=== PATIENT | male | born 1945 | race Caucasian/White ===

== ENCOUNTER → 2017-09-04 | Outpatient (CLI) | payer MEDICARE ==
--- NOTE | 2017-09-04 11:30 | FL ---
EXAMINATION TYPE: FL barium swallow w video DATE OF EXAM: 09/04/2017 MODIFIED SWALLOW / DEGLUTITION STUDY CLINICAL HISTORY: Dysphagia. TECHNIQUE: Deglutition study is performed utilizing thin liquid barium, honey and nectar thick liqui d barium, barium thick applesauce, and barium coated cracker. A total of 1 minute 56 seconds of fluor oscopic time was utilized during procedure. 1 image is saved to PACS. Approximately 10 cine sequence s were obtained but not sent to PACS. COMPARISON: None. FINDINGS: The oral and pharyngeal phases show satisfactory initiation and propagation with all modali ties tested. Normal mastication is seen with solid modalities tested. There is no evidence of penet ration or aspiration with any modality tested. There is a rounded vallecular mass at C2-C3 disc space level narrowing the hypopharyngeal airway. Some mild pharyngeal residuals are noted. Images saved to PACS system. Incidental note is made of straightening spine with moderate to severe spurring and dis c space narrowing C5-C6 level. IMPRESSION: No penetration or aspiration is observed. Abnormal study though with large round vallecul ar mass. ENT referral advised. Consider further investigation with contrast-enhanced neck CT also. Pl ease refer to speech therapist notes for further details if necessary.
== END | disposition home or self-care (01) ==
LOC: RADFLWHC 10:09
PROVIDERS: ATTEND Family Medicine
DX: R94.8 Abnormal results of function studies of other organs and systems (principal); R13.14 Dysphagia, pharyngoesophageal phase
CPT/HCPCS: 74230

== ENCOUNTER 2017-09-21 08:32 | Day surgery (SDC) | payer MEDICARE ==
[2017-09-19 16:52] VITALS: BMI 24.3
[~2017-09-21 08:32] MED LIST: CLINDAMYCIN 600 MG in DEXTROSE 5% IN WATER 50 ML IVPB ONE; DEXAMETHASONE SOD PHOSPHATE 10 MG/ML 1 ML VIAL IV ONE; DEXAMETHASONE SOD PHOSPHATE 4 MG/ML 1 ML VIAL IV ONE; FAMOTIDINE 20 MG/2 ML VIAL IV ONE; HYDROmorphone 1 MG/ML 1 ML SYRINGE IVP PRN; LIDOCAINE 1% 20 ML VIAL (10MG/ML) FOR IV START INTRADERMA PRN; MIDAZOLAM 2 MG/2 ML VIAL IV PRN; ONDANSETRON 4 MG/2 ML VIAL IVP ONE; SCOPOLAMINE 1.5MG/72HR PATCH TRANSDERM ONE
[2017-09-21] MEDS: LACTATED RINGERS 1,000 ML IV SCH ×2 (10:05→12:59)
[2017-09-21 10:20] LABS: INR 1.3 (<1.2); Prothrombin Time 13.2 sec (9.0-12.0)
[2017-09-21] MEDS ORDERED: PROPOFOL 10 MG/ML 20 ML VIAL IV ONE (11:30)
[2017-09-21] MEDS ORDERED: ePHEDrine SULFATE/0.9% NACL/PF 50 MG/5 ML SYRINGE IV ONE (11:30)
[2017-09-21] MEDS ORDERED: ROCURONIUM BROMIDE 10 MG/ML 10 ML VIAL IV ONE (11:30)
[2017-09-21] MEDS ORDERED: PHENYLEPHRINE-0.9% NACL SYG 1 MG/10 ML SYRINGE ONE (11:30)
[2017-09-21] MEDS ORDERED: MIDAZOLAM 2 MG/2 ML VIAL ONE (11:30)
[2017-09-21] MEDS ORDERED: SUCCINYLCHOLINE CHLORIDE 100 MG/5 ML SYR IV ONE (11:30)
[2017-09-21] MEDS ORDERED: GLYCOPYRROLATE 0.2 MG/ML 2 ML VIAL ONE (11:30)
[2017-09-21] MEDS ORDERED: DEXAMETHASONE SOD PHOS (MDV) 100 MG/10 ML VIAL ONE (11:30)
[2017-09-21] MEDS ORDERED: NEOSTIGMINE 1 MG/ML 10 ML VIAL ONE (11:30)
[2017-09-21] MEDS ORDERED: fentaNYL (PF) 50 MCG/ML 2 ML AMP ONE (11:30)
[2017-09-21 12:32] VITALS: TEMP 97
--- NOTE | 2017-09-21 12:39 | P.OP ---
Date of Procedure: 09/21/17 Preoperative Diagnosis: Vallecular cystic mass dysphagia Cough Postoperative Diagnosis: Same Procedure(s) Performed: Triple endoscopy and removal of a large i.e. massive vallecular cystic mass Anesthesia: VAA Surgeon: Ollie Mazno Estimated Blood Loss (ml): 5 Pathology: other (Vallecular cystic mass) Condition: stable Disposition: PACU Indications for Procedure: This patient presented to the office with difficulty swallowing breathing etc. Examination reveals extremely large vallecular cystic mass and I was unable to evaluate the vocal cords piriform sinus or other parts of the hypopharynx because of this extremely large mass. After long discussion, we decided to proceed forward with removal of this mass along with panendoscopy as this patient has had coughing issues and dysphagia. All risks, benefits, and alternative therapies were discussed in detail. Consent was obtained and all questions were answered. Operative Findings: Patient was found to have a massive vallecular cyst which was removed. There is clear evidence of chronic bronchitis with mucus noted with bronchoscopy. Hiatal hernia and reflux was noted with esophagoscopy. No other tumors or masses or other pathology was noted. Description of Procedure: This patient was taken to the operative room and placed in the supine position. A general inhalation anesthetic was administered to the patient by mask and subsequently intubated with a cuffed endotracheal tube by the department of anesthesia with a functioning IV line in place. The patient was monitored throughout the entire case by the department of anesthesia. A Jako laryngoscope was placed into the patient's mouth with care to avoid any trauma to the lips teeth gums and tongue. Ulcers open tongue was depressed and the entire [place] and hypopharynx was evaluated including the piriform sinus epiglottic folds [place] cords base of tongue etc. We found this extremely large vallecular mass which measured approximate 4 cm. This vallecular mass was removed and sent for pathology. A large amount of mucus was noted in the core of this vallecular mass. After the entire [place] and hypopharynx was evaluated this was placed on suspension on a Lewy and magnified with a microscope. We then inserted a bronchoscope into the mainstem bronchus and we did a complete bronchoscopy evaluating all 12 segments of the lungs. We evaluated the lungs to the extent of visualization with the bronchoscope. There was evidence of a large amount of mucus and clear evidence of chronic bronchitis but no signs of any endobronchial lesions. The bronchoscope was removed along with a laryngoscope and tooth guards and an esophagoscope was inserted into the esophagus we entered the right piriform sinus and cannulated the esophagus down to the lower esophageal sphincter. We evaluated the esophagus from the upper to the lower esophageal sphincter in total. There was a large amount of reflux disease noted but no signs of any esophageal lesions. All instrumentation was removed. The patient tolerated this well. Patient was taken to postanesthesia recovery in excellent condition
[2017-09-21 13:31] VITALS: RESP 18
[2017-09-21 14:22] VITALS: BP 115/80; PULSE 81
== END 2017-09-21 14:41 | disposition home or self-care (01) ==
LOC: OR 08:32
PROVIDERS: ATTEND Otolaryngology
DX: R13.13 Dysphagia, pharyngeal phase (principal); J39.2 Other diseases of pharynx; I10 Essential (primary) hypertension; I48.91 Unspecified atrial fibrillation; J44.9 Chronic obstructive pulmonary disease, unspecified; K21.9 Gastro-esophageal reflux disease without esophagitis; Z88.1 Allergy status to other antibiotic agents; Z88.0 Allergy status to penicillin; Z88.8 Allergy status to other drugs, medicaments and biological substances; Z79.82 Long term (current) use of aspirin; Z79.899 Other long term (current) drug therapy; Z79.01 Long term (current) use of anticoagulants; Z79.51 Long term (current) use of inhaled steroids
CPT/HCPCS: 43200; 31622; 31535; 88305; 85610; J2250; J1100 ×2; J2710; J2405; J3010; J2370; J0330; J2704

== ENCOUNTER 2022-07-10 12:57 | Inpatient (IN) | payer OTHER, MEDICARE ==
[2022-07-10] MEDS ORDERED: methylPREDNISolone SOD SUCCI 125 MG/2 ML VIAL IV STA (13:08)
--- NOTE | 2022-07-10 13:34 | ED ---
General Adult HPI - General Chief complaint: Shortness of Breath Stated complaint: ALPHONSO Time Seen by Provider: 07/10/22 13:01 Source: patient, EMS Mode of arrival: EMS Limitations: no limitations - History of Present Illness Initial comments: Patient presents to the ED by ambulance for evaluation. Patient states that he has been dyspneic since last night. Patient states that he has a history of COPD, and he states he was just in the hospital a week ago for similar symptoms. Patient states that he has been using his nebulizer machine at home with te mporary relief. Patient was given a DuoNeb treatment by EMS, and he states that his dyspnea has significantly improved currently. Patient states that he has not received any Covid vaccines shots. Patient states that he did have minor chest pain this morning, but he denies having any chest pain or pressure currently. Patient denies trauma or injury, fever or chills, headache, focal neuro deficit, neck/arm/jaw/back pain, pleuritic pain, cough or cold symptoms, palpitations, dizziness, nausea/vomiting/diaphoresis, abdominal pain, dysuria or urinary symptoms, decreased urine output, leg or calf swelling or pain, or any other symptoms or complaints. Patient is on warfarin anticoagulation therapy. - Related Data Home Medications Medication Instructions Recorded Confirmed Acetaminophen [Tylenol] 325 mg PO Q6H PRN 09/19/17 07/10/22 Albuterol Inhaler [Ventolin Hfa 2 puff INHALATION RT-Q4H PRN 09/19/17 07/10/22 Inhaler] Aspirin [Adult Low Dose Aspirin EC] 81 mg PO DAILY 09/19/17 07/10/22 Budesonide-Formot 160-4.5 Mcg 2 puff INHALATION RT-BID 09/19/17 07/10/22 [Symbicort 160-4.5 Mcg Inhaler] Furosemide [Lasix] 20 mg PO BID 09/19/17 07/10/22 Loratadine 10 mg PO DAILY 09/19/17 07/10/22 Omeprazole Magnesium [PriLOSEC OTC] 20 mg PO DAILY 09/19/17 07/10/22 Potassium Chloride [K-Tab ER] 10 meq PO DAILY 09/19/17 07/10/22 Tamsulosin HCl [Flomax] 0.4 mg PO DAILY 09/19/17 07/10/22 Acetaminophen/Diphenhydramine 2 tab PO HS PRN 07/01/22 07/10/22 [Tylenol PM 500-25mg] Atorvastatin Calcium [Lipitor] 40 mg PO DAILY 07/01/22 07/10/22 Nitroglycerin Sl Tabs [Nitrostat] 0.4 mg SL Q5M PRN 07/01/22 07/10/22 Sacubitril/Valsartan [Entresto 24 1 tab PO BID 07/01/22 07/10/22 mg-26 mg Tablet] Tiotropium 2.5 Mcg/Puff [Spiriva 2 puff INHALATION RT-DAILY 07/01/22 07/10/22 Respimat 2.5 Mcg] Warfarin Sodium 2 mg PO SUMOTUTHFRSA@2100 07/01/22 07/10/22 Previous Rx's Medication Instructions Recorded Metoprolol Tartrate [Lopressor] 25 mg PO BID 30 Days #60 tab 07/03/22 Allergies Allergy/AdvReac Type Severity Reaction Status Date / Time Penicillins Allergy Rash/Hives Verified 07/10/22 15:10 tiotropium Allergy Cough with Verified 07/10/22 15:10 [From Spiriva with handihaler HandiHaler] only vancomycin Allergy Rash/Hives Verified 07/10/22 15:10 morphine AdvReac Confusion Verified 07/10/22 15:10 Review of Systems ROS Statement: Those systems with pertinent positive or pertinent negative responses have been documented in the HPI. ROS Other: All systems not noted in ROS Statement are negative. Past Medical History Past Medical History: Coronary Artery Disease (CAD), GERD/Reflux, Hyperlipidemia, Hypertension Additional Past Medical History / Comment(s): Colitis Last Myocardial Infarction Date:: 1998 History of Any Multi-Drug Resistant Organisms: None Reported Past Surgical History: Coronary Bypass/CABG, Heart Catheterization With Stent Additional Past Surgical History / Comment(s): fem pop bypass Past Anesthesia/Blood Transfusion Reactions: No Reported Reaction Date of Last Stent Placement:: 2016 Past Psychological History: No Psychological Hx Reported Smoking Status: Never smoker Past Alcohol Use History: None Reported Past Drug Use History: None Reported General Exam Limitations: no limitations General appearance: alert, in no apparent distress Head exam: Present: atraumatic, normocephalic Eye exam: Present: normal appearance, EOMI ENT exam: Present: mucous membranes moist Neck exam: Present: other (Trachea is in midline) Respiratory exam: Present: normal lung sounds bilaterally, decreased breath sounds, other (Trace, scattered, bilateral expiratory wheezes; patient is speaking in full sentences without any apparent respiratory distress). Absent: respiratory distress, rales, rhonchi, stridor, chest wall tenderness Cardiovascular Exam: Present: regular rate, irregular rhythm, normal heart sounds, other (Normal radial pulses bilaterally) GI/Abdominal exam: Present: soft. Absent: distended, tenderness, guarding Extremities exam: Present: other (Negative Homans sign bilaterally). Absent: tenderness, pedal edema, calf tenderness Neurological exam: Present: alert, oriented X3. Absent: motor sensory deficit Psychiatric exam: Present: normal affect, normal mood Skin exam: Present: warm, dry, intact, normal color Course Vital Signs 07/10/22 07/10/22 07/10/22 13:02 13:22 14:44 Temperature 98.8 F 97.7 F 98.1 F Pulse Rate 86 90 80 Respiratory 18 16 16 Rate Blood Pressure 98/62 82/55 78/51 O2 Sat by Pulse 98 95 95 Oximetry 07/10/22 07/10/22 07/10/22 14:57 15:06 15:47 Temperature 98.1 F Pulse Rate 88 81 94 Respiratory 16 Rate Blood Pressure 90/63 O2 Sat by Pulse 95 Oximetry - Reevaluation(s) Reevaluation #1: 07/10/22 14:47 Case, H&P, test results and ED/EMS management were discussed with Dr. Davis who is currently in the ED. He accepts hospital admission. He recommends pulmonology (Dr. Bennett) consultation. He has no further recommendations at this time. 07/10/22 14:56 Patient states that his dyspnea has currently improved. Patient remains alert and breathing comfortably with a normal room air oxygen saturation. Patient is aware of his test results, and he agrees with hospital admission at this time. EKG Findings - EKG Comments: EKG Findings:: Atrial fibrillation with aberrant conduction versus PVCs, ventricular rate of 90 bpm, normal QRS duration, normal QT interval, no definite ST or T-wave abnormality, normal axis Medical Decision Making - Medical Decision Making I suspect that the patient's dyspnea is due to COPD exacerbation, as well as pneumonia. Patient has been treated with neb treatments, IV Solu-Medrol and IV antibiotics. Patient is breathing comfortably in the ED. Patient has a supratherapeutic INR, but does not have any active bleeding at this time -> will hold his warfarin at this time. Dr. Davis has accepted hospital admission. - Lab Data Result diagrams: 07/10/22 13:36 07/10/22 13:36 Lab Results 07/10/22 07/10/22 07/10/22 Range/Units 13:36 13:36 13:36 WBC 11.8 H (3.8-10.6) k/uL RBC 4.83 (4.30-5.90) m/uL Hgb 12.0 L (13.0-17.5) gm/dL Hct 38.7 L (39.0-53.0) % MCV 80.0 (80.0-100.0) fL MCH 24.8 L (25.0-35.0) pg MCHC 31.0 (31.0-37.0) g/dL RDW 18.0 H (11.5-15.5) % Plt Count 319 (150-450) k/uL MPV 7.3 Neutrophils % 85 % Lymphocytes % 7 % Monocytes % 6 % Eosinophils % 1 % Basophils % 0 % Neutrophils # 10.0 H (1.3-7.7) k/uL Lymphocytes # 0.8 L (1.0-4.8) k/uL Monocytes # 0.8 (0-1.0) k/uL Eosinophils # 0.1 (0-0.7) k/uL Basophils # 0.0 (0-0.2) k/uL Hypochromasia Slight Anisocytosis Slight Microcytosis Slight PT 53.0 H (9.0-12.0) sec INR 5.3 H* (<1.2) APTT 44.8 H (22.0-30.0) sec Sodium 138 (137-145) mmol/L Potassium 3.4 L (3.5-5.1) mmol/L Chloride 98 (98-107) mmol/L Carbon Dioxide 28 (22-30) mmol/L Anion Gap 12 mmol/L BUN 31 H (9-20) mg/dL Creatinine 1.09 (0.66-1.25) mg/dL Est GFR (CKD-EPI)AfAm 75 (>60 ml/min/1.73 sqM) Est GFR (CKD-EPI)NonAf 65 (>60 ml/min/1.73 sqM) Glucose 118 H (74-99) mg/dL Calcium 7.7 L (8.4-10.2) mg/dL Total Bilirubin 1.4 H (0.2-1.3) mg/dL AST 17 (17-59) U/L ALT 35 (4-49) U/L Alkaline Phosphatase 112 (38-126) U/L Troponin I (0.000-0.034) ng/mL NT-Pro-B Natriuret Pep pg/mL Total Protein 6.1 L (6.3-8.2) g/dL Albumin 3.2 L (3.5-5.0) g/dL Influenza Type A (PCR) (Not Detectd) Influenza Type B (PCR) (Not Detectd) RSV (PCR) (Not Detectd) SARS-CoV-2 (PCR) (Not Detectd) 07/10/22 07/10/22 07/10/22 Range/Units 13:36 13:36 13:36 WBC (3.8-10.6) k/uL RBC (4.30-5.90) m/uL Hgb (13.0-17.5) gm/dL Hct (39.0-53.0) % MCV (80.0-100.0) fL MCH (25.0-35.0) pg MCHC (31.0-37.0) g/dL RDW (11.5-15.5) % Plt Count (150-450) k/uL MPV Neutrophils % % Lymphocytes % % Monocytes % % Eosinophils % % Basophils % % Neutrophils # (1.3-7.7) k/uL Lymphocytes # (1.0-4.8) k/uL Monocytes # (0-1.0) k/uL Eosinophils # (0-0.7) k/uL Basophils # (0-0.2) k/uL Hypochromasia Anisocytosis Microcytosis PT (9.0-12.0) sec INR (<1.2) APTT (22.0-30.0) sec Sodium (137-145) mmol/L Potassium (3.5-5.1) mmol/L Chloride (98-107) mmol/L Carbon Dioxide (22-30) mmol/L Anion Gap mmol/L BUN (9-20) mg/dL Creatinine (0.66-1.25) mg/dL Est GFR (CKD-EPI)AfAm (>60 ml/min/1.73 sqM) Est GFR (CKD-EPI)NonAf (>60 ml/min/1.73 sqM) Glucose (74-99) mg/dL Calcium (8.4-10.2) mg/dL Total Bilirubin (0.2-1.3) mg/dL AST (17-59) U/L ALT (4-49) U/L Alkaline Phosphatase (38-126) U/L Troponin I 0.024 (0.000-0.034) ng/mL NT-Pro-B Natriuret Pep 2620 pg/mL Total Protein (6.3-8.2) g/dL Albumin (3.5-5.0) g/dL Influenza Type A (PCR) Not Detected (Not Detectd) Influenza Type B (PCR) Not Detected (Not Detectd) RSV (PCR) Not Detected (Not Detectd) SARS-CoV-2 (PCR) Not Detected (Not Detectd) - Radiology Data Chest x-ray: Left lower lobe airspace opacities concerning for developing pneumonia. The left upper and midlung opacities seen on prior CT are less well appreciated. Disposition Clinical Impression: COPD exacerbation, Pneumonia, Atrial fibrillation, Supratherapeutic INR Disposition: ADMITTED IP TO THIS HOSP Condition: Stable Is patient prescribed a controlled substance at d/c from ED?: No Time of Disposition: 14:48
--- NOTE | 2022-07-10 13:44 | XR ---
EXAMINATION TYPE: XR chest 1V portable DATE OF EXAM: 07/10/2022 1:31 PM COMPARISON: Chest radiographs from 07/01/2022. CT angiogram TECHNIQUE: XR chest 1V portable Frontal view of the chest. CLINICAL INDICATION:Male, 76 years old with history of dyspnea; FINDINGS: Lungs/Pleura: Left lower lobe airspace opacities which appear more dense on today's exam. Prior mid a nd upper lung left-sided opacities are less well-visualized which were seen on prior CT. Pulmonary vascularity: Unremarkable. Heart/mediastinum: Cardiomediastinal silhouette is unremarkable. Single-lead cardiac conduction devic e overlying the left hemithorax with lead projecting over the right ventricle. Musculoskeletal: No acute osseous pathology. IMPRESSION: Left lower lobe airspace opacities concerning for developing pneumonia. The left upper and midlung op acities seen on prior CT are less well appreciated.
[2022-07-10 13:52] LABS: Anisocytosis Slight; Basophils % (A) 0 %; Eosinophils # (A) 0.1 k/uL (0-0.7); Eosinophils % (A) 1 %; HCT 38.7 % (39.0-53.0); Hypochromasia Slight; Lymphocytes # (A) 0.8 k/uL (1.0-4.8); Lymphocytes % (A) 7 %; MCH 24.8 pg (25.0-35.0); Mean Platelet Volume 7.3; Microcytosis Slight; Monocytes # (A) 0.8 k/uL (0-1.0); Monocytes % (A) 6 %; Neutrophils % (A) 85 %; Platelet Count 319 k/uL (150-450); RBC 4.83 m/uL (4.30-5.90); WBC 11.8 k/uL (3.8-10.6)
[2022-07-10 14:08] LABS: Albumin 3.2 g/dL (3.5-5.0); Calcium 7.7 mg/dL (8.4-10.2); Potassium 3.4 mmol/L (3.5-5.1); Total Bilirubin 1.4 mg/dL (0.2-1.3); Total Protein 6.1 g/dL (6.3-8.2)
[2022-07-10] MEDS ORDERED: cefTRIAXone IN SWFI 1,000 MG/10 ML SYRINGE IVP STA (14:08)
[2022-07-10] MEDS ORDERED: AZITHROMYCIN 500 MG in SODIUM CHLORIDE 0.9% 250 ML IVPB STA (14:09)
[2022-07-10 14:12] LABS: Partial Thromboplastin Time 44.8 sec (22.0-30.0)
[2022-07-10 14:24] LABS: INR 5.3 (<1.2)
[2022-07-10] MEDS ORDERED: ALBUTEROL NEBULIZED 2.5 MG/3 ML INHALATION SCH (15:00)
[2022-07-10] MEDS: IPRATROPIUM-ALBUTEROL 3 ML NEB INHALATION SCH ×2 (15:28→20:12)
[2022-07-10] MEDS: AZITHROMYCIN 500 MG in SODIUM CHLORIDE 0.9% 250 ML IVPB SCH (15:52)
[2022-07-10] MEDS ORDERED: SODIUM CHLORIDE 0.9% 1,000 ML IV ONE (16:36)
[2022-07-10] MEDS: methylPREDNISolone SOD SUCCI 125 MG/2 ML VIAL IV SCH (17:28)
[2022-07-10] MEDS: BUDESONIDE 1 MG/2 ML NEBU INHALATION SCH (20:13)
[2022-07-10] MEDS: FORMOTEROL FUMARATE 20 MCG/2 ML NEBU INHALATION SCH (20:13)
[2022-07-11] MEDS: methylPREDNISolone SOD SUCCI 125 MG/2 ML VIAL IV SCH ×5 (01:16→23:19)
--- NOTE | 2022-07-11 01:18 | HP ---
HISTORY AND PHYSICAL CHIEF COMPLAINT: Shortness of breath. HISTORY OF PRESENT ILLNESS: This 76-year-old gentleman with a past medical history of COPD, was recently admitted to [facility]. The patient went home and the patient is currently having increased shortness of breath and some urinary difficulties, so the patient came back and the patient had COPD exacerbation as well as left lower lobe pneumonia. The patient was admitted for further evaluation and treatment. There is no history of fever, rigors, chills. PAST MEDICAL HISTORY: Reviewed, includes COPD. HOME MEDICATIONS: Reviewed, which include prednisone dose and rest of medication noted. ALLERGIES: Reviewed include penicillin. FAMILY HISTORY: History of heart disease and strokes in the family. SOCIAL HISTORY: Previously smoking remotely. REVIEW OF SYSTEMS: A 14-point review is negative except as mentioned earlier. PHYSICAL EXAMINATION: VITAL SIGNS: Pulse is 80, blood pressure is ntd, respirations 16. HEENT: Conjunctivae normal. CARDIOVASCULAR: S1, S2. RESPIRATION: Breath sounds diminished in the bases. Scattered rhonchi. Expiratory wheezing. ABDOMEN: Soft, nontender. LEGS: No edema. NERVOUS SYSTEM: No focal deficit. SKIN: No rashes JOINTS: No active arthropathy. LABORATORY DATA: WBC ntd_. Rest of the labs noted. ASSESSMENT: 1. Chronic obstructive pulmonary disease acute exacerbation with left lower lobe pneumonia with failure of outpatient treatment. 2. Hypertension. 3. Hyperlipidemia. 4. History of colitis. 5. History of coronary artery disease , coronary artery bypass graft surgery stent. 6. History of aortic aneurysm. RECOMMENDATIONS: In this 76-year-old gentleman who presented with multiple complex medical issues, we will monitor the patient closely. Recommend increased intensive bronchodilator treatment, empiric antibiotics, and pulmonary consultation. Prognosis guarded because of multiple complex medical conditions. Home medications will continue when they are reconciled. See orders for details. MMODL / IJN: [id number] / ENRIQUETA
[2022-07-11] MEDS: BUDESONIDE 1 MG/2 ML NEBU INHALATION SCH (07:49)
[2022-07-11] MEDS: FORMOTEROL FUMARATE 20 MCG/2 ML NEBU INHALATION SCH (07:49)
[2022-07-11] MEDS: IPRATROPIUM-ALBUTEROL 3 ML NEB INHALATION SCH ×4 (07:50→20:09)
[2022-07-11 08:55] LABS: Basophils # (A) 0 X 10*3/uL (0.00-0.10); Basophils % (A) 0 %; Eosinophils # (A) 0 X 10*3/uL (0.04-0.35); Eosinophils % (A) 0 %; HCT 35.6 % (39.6-50.0); HGB 11.1 g/dL (13.0-17.0); Immature Grans, Automated 0.8 %; Lymphocytes # (A) 0.24 X 10*3/uL (0.90-5.00); Lymphocytes % (A) 3.7 %; MCH 24.8 pg (27.0-32.0); MCHC 31.2 g/dL (32.0-37.0); MCV 79.6 fL (80.0-97.0); Monocytes # (A) 0.11 X 10*3/uL (0.20-1.00); Monocytes % (A) 1.7 %; NRBC Per 100 WBC 0 /100 WBCS (0.0-0.0); Neutrophils # (A) 6.13 X 10*3/uL (1.80-7.70); Neutrophils % (A) 93.8 %; Platelet Count 301 X 10*3/uL (140-440); RBC 4.47 X 10*6/uL (4.40-5.60); RDW 19.4 % (11.5-14.5); WBC 6.53 X 10*3/uL (4.50-10.00)
[2022-07-11] MEDS ORDERED: ACETAMINOPHEN TAB 325 MG TAB PO PRN (08:59)
[2022-07-11] MEDS ORDERED: ALBUTEROL NEBULIZED 2.5 MG/3 ML INHALATION PRN (08:59)
[2022-07-11 09:05] LABS: INR 4.67 (0.90-1.11)
[2022-07-11] MEDS: METOPROLOL TARTRATE 25 MG TAB PO SCH ×2 (09:34→20:24)
[2022-07-11] MEDS: ATORVASTATIN 40 MG TAB PO SCH (09:34)
[2022-07-11] MEDS: LORATADINE 10 MG TAB PO SCH (09:34)
[2022-07-11] MEDS: TAMSULOSIN 0.4 MG CAP.ER.24H PO SCH (09:34)
[2022-07-11] MEDS: ASPIRIN 81 MG PO SCH (09:34)
[2022-07-11] MEDS: SACUBITRIL/VALSARTAN 24 MG-26 MG TABLET PO SCH ×2 (09:39→20:24)
[2022-07-11] MEDS: PANTOPRAZOLE 40 MG TABLET PO SCH (09:40)
[2022-07-11] MEDS: SODIUM CHLORIDE 0.9% 1,000 ML IV SCH (10:31)
[2022-07-11 12:07] LABS: African American GFR (CKD) 77.5 (60.0-200.0); Albumin/Globulin Ratio 1.2 (1.60-3.17); Anion Gap 14.5 mmol/L (10.00-18.00); BUN/Creat Ratio 28.49 Ratio (12.00-20.00); Blood Urea Nitrogen 30.2 mg/dL (9.0-27.0); Calcium 8.4 mg/dL (8.7-10.3); Carbon Dioxide 23.3 mmol/L (20.0-27.5); Globulin 2.5 g/dL (1.6-3.3); Non-African American GFR(CKD) 66.9 (60.0-200.0); Potassium 4.3 mmol/L (3.5-5.5); Total Bilirubin 0.6 mg/dL (0.30-1.20); Total Protein 5.5 g/dL (6.2-8.2)
[2022-07-11] MEDS: IPRATROPIUM 0.5 MG/2.5 ML NEBU INHALATION SCH ×3 (12:13→19:48)
--- NOTE | 2022-07-11 13:48 | P.CNPUL ---
History of Present Illness Consult date: 07/11/22 Requesting physician: Sabrina Davis Reason for consult: dyspnea, abnormal CXR/CT Chief complaint: Shortness of breath, cough, congestion History of present illness: Physical very pleasant 76-year-old male patient with known history of COPD, coronary artery disease, hypertension, hyperlipidemia, coronary artery disease with previous stent placement and previous coronary grafting. He was recently hospitalized for upper chest wall pain felt to be musculoskeletal in nature. At that time x-ray revealed interstitial scarring at the left formation left upper lobe in addition to marked emphysematous changes. The plan was for follow-up surveillance computed tomography scan of the chest in 5-6 months and possibly a PET scan. He was discharged on 07/03/2022. However the patient developed worse carli shortness of breath and presented here to the emergency room again yesterday. This x-ray is now revealing a left lower lobe airspace opacity concerning for developing pneumonia. Left upper and midlung opacity seen on previous CT scans less appreciated. He is seen today in consultation on the regular medical floor. He is currently sitting up in the bedside. Awake and alert in no acute distress. He does have a loose nonproductive cough. He is maintaining good O2 saturations in the 90s on room air. He's been afebrile. Slightly tachycardic. Blood pressure stable. White count 6.5. Hemoglobin 11.1. Platelets 301. INR 4.67. Sodium 142. Potassium 4.3. BUN 30. Creatinine 1.1. Lactic acid 3.0. Glucose 183. He's been initiated on DuoNeb inhalations, Symbicort, antibiotics in the form of ceftriaxone and azithromycin. He is on IV Solu-Medrol Review of Systems REVIEW OF SYSTEMS: CONSTITUTIONAL: Denies any recent significant weight loss or weight gain. EYES: Denies change in vision. EARS, NOSE, MOUTH, THROAT: Denies headaches, denies sore throat. CARDIOVASCULAR: Denies chest pain, palpitations or syncopal episodes. RESPIRATORY: Positive for shortness of breath, cough, congestion no hemoptysis. GASTROINTESTINAL: Denies change in appetite, denies abdominal pain GENITOURINARY: Denies hematuria, denies infections. MUSKULOSKELETAL: Denies pain, denies swelling. INTEGUMENTARY: Denies rash, denies eczema. NEUROLOGICAL: Denies recent memory loss, no recent seizure activity. PSYCHIATRIC: Denies anxiety, denies depression. HEMATOLOGIC/LYMPHATIC: Denies anemia, denies enlarged lymph nodes. Past Medical History Past Medical History: Coronary Artery Disease (CAD), GERD/Reflux, Hyperlipidemia, Hypertension Additional Past Medical History / Comment(s): Colitis Last Myocardial Infarction Date:: 1998 History of Any Multi-Drug Resistant Organisms: None Reported Past Surgical History: Coronary Bypass/CABG, Heart Catheterization With Stent Additional Past Surgical History / Comment(s): fem pop bypass Past Anesthesia/Blood Transfusion Reactions: No Reported Reaction Date of Last Stent Placement:: 2016 Past Psychological History: No Psychological Hx Reported Smoking Status: Never smoker Past Alcohol Use History: None Reported Past Drug Use History: None Reported Medications and Allergies Home Medications Medication Instructions Recorded Confirmed Type Acetaminophen [Tylenol] 325 mg PO Q6H PRN 09/19/17 07/10/22 History Albuterol Inhaler [Ventolin Hfa 2 puff INHALATION RT-Q4H PRN 09/19/17 07/10/22 History Inhaler] Aspirin [Adult Low Dose Aspirin EC] 81 mg PO DAILY 09/19/17 07/10/22 History Budesonide-Formot 160-4.5 Mcg 2 puff INHALATION RT-BID 09/19/17 07/10/22 History [Symbicort 160-4.5 Mcg Inhaler] Furosemide [Lasix] 20 mg PO BID 09/19/17 07/10/22 History Loratadine 10 mg PO DAILY 09/19/17 07/10/22 History Omeprazole Magnesium [PriLOSEC OTC] 20 mg PO DAILY 09/19/17 07/10/22 History Potassium Chloride [K-Tab ER] 10 meq PO DAILY 09/19/17 07/10/22 History Tamsulosin HCl [Flomax] 0.4 mg PO DAILY 09/19/17 07/10/22 History Acetaminophen/Diphenhydramine 2 tab PO HS PRN 07/01/22 07/10/22 History [Tylenol PM 500-25mg] Atorvastatin Calcium [Lipitor] 40 mg PO DAILY 07/01/22 07/10/22 History Nitroglycerin Sl Tabs [Nitrostat] 0.4 mg SL Q5M PRN 07/01/22 07/10/22 History Sacubitril/Valsartan [Entresto 24 1 tab PO BID 07/01/22 07/10/22 History mg-26 mg Tablet] Tiotropium 2.5 Mcg/Puff [Spiriva 2 puff INHALATION RT-DAILY 07/01/22 07/10/22 History Respimat 2.5 Mcg] Warfarin Sodium 2 mg PO BLUETUTHOSIRIS@2100 07/01/22 07/10/22 History Metoprolol Tartrate [Lopressor] 25 mg PO BID 30 Days #60 tab 07/03/22 07/10/22 R x Allergies Allergy/AdvReac Type Severity Reaction Status Date / Time Penicillins Allergy Rash/Hives Verified 07/10/22 15:10 tiotropium Allergy Cough with Verified 07/10/22 15:10 [From Spiriva with handihaler HandiHaler] only vancomycin Allergy Rash/Hives Verified 07/10/22 15:10 morphine AdvReac Confusion Verified 07/10/22 15:10 Physical Exam Vitals: Vital Signs Temp Pulse Pulse Resp BP BP Pulse Ox 07/11/22 12:25 85 07/11/22 12:13 83 07/11/22 08:23 111 H 07/11/22 08:13 105 H 07/11/22 08:12 105 H 07/11/22 08:05 97.5 F L 95 17 101/43 93 L 07/11/22 07:51 103 H 07/11/22 01:42 97.9 F 78 16 93/55 93 L 07/10/22 20:47 98.4 F 99 16 101/63 93 L 07/10/22 20:31 88 07/10/22 20:21 88 07/10/22 20:20 88 07/10/22 20:17 85 07/10/22 16:42 97.7 F 85 18 94/52 95 07/10/22 15:47 98.1 F 94 16 90/63 95 07/10/22 15:06 81 07/10/22 14:57 88 07/10/22 14:44 98.1 F 80 16 78/51 95 Intake and Output 07/10/22 07/11/22 07/11/22 22:59 06:59 14:59 Output Total 1 Balance -1 Output: Urine 1 Other: Voiding Method Toilet Toilet # Voids 3 Weight 72.575 kg GENERAL EXAM: Alert, pleasant 76-year-old male patient, on room air, comfortable in no apparent distress. HEAD: Normocephalic. EYES: Normal reaction of pupils, equal size. NOSE: Clear with pink turbinates. THROAT: No erythema or exudates. NECK: No masses, no JVD. CHEST: No chest wall deformity. LUNGS: Equal air entry with scattered rhonchi more so on the left. CVS: S1 and S2 normal with no audible murmur, regular rhythm. ABDOMEN: No hepatosplenomegaly, normal bowel sounds, no guarding or rigidity. SPINE: No scoliosis or deformity SKIN: No rashes CENTRAL NERVOUS SYSTEM: No focal deficits, tone is normal in all 4 extremities. EXTREMITIES: There is no peripheral edema. No clubbing, no cyanosis. Perip heral pulses are intact. Results - Laboratory Findings CBC and BMP: 07/11/22 06:33 07/11/22 06:33 PT/INR, D-dimer PT 49.0 sec (9.9-11.9) H 07/11/22 06:33 INR 4.67 (0.90-1.11) H 07/11/22 06:33 Abnormal lab findings: Abnormal Labs 07/10/22 07/10/22 07/10/22 13:36 13:36 13:36 WBC 11.8 H Hgb 12.0 L Hct 38.7 L MCV MCH 24.8 L MCHC RDW 18.0 H Immature Gran # Neutrophils # 10.0 H Lymphocytes # 0.8 L Monocytes # Eosinophils # PT 53.0 H INR 5.3 H* APTT 44.8 H Potassium 3.4 L BUN 31 H BUN/Creatinine Ratio Glucose 118 H Plasma Lactic Acid Sedrick Calcium 7.7 L Total Bilirubin 1.4 H AST Total Protein 6.1 L Albumin 3.2 L Albumin/Globulin Ratio 07/10/22 07/10/22 07/10/22 15:24 19:24 23:28 WBC Hgb Hct MCV MCH MCHC RDW Immature Gran # Neutrophils # Lymphocytes # Monocytes # Eosinophils # PT INR APTT Potassium BUN BUN/Creatinine Ratio Glucose Plasma Lactic Acid Sedrick 2.6 H* 2.9 H* 2.4 H* Calcium Total Bilirubin AST Total Protein Albumin Albumin/Globulin Ratio 07/11/22 07/11/22 07/11/22 03:11 06:33 06:33 WBC Hgb 11.1 L Hct 35.6 L MCV 79.6 L MCH 24.8 L MCHC 31.2 L RDW 19.4 H Immature Gran # 0.05 H Neutrophils # Lymphocytes # 0.24 L Monocytes # 0.11 L Eosinophils # 0 L PT 49.0 H INR 4.67 H APTT Potassium BUN BUN/Creatinine Ratio Glucose Plasma Lactic Acid Sedrick 2.1 H* Calcium Total Bilirubin AST Total Protein Albumin Albumin/Globulin Ratio 07/11/22 07/11/22 07/11/22 06:33 06:33 09:32 WBC Hgb Hct MCV MCH MCHC RDW Immature Gran # Neutrophils # Lymphocytes # Monocytes # Eosinophils # PT INR APTT Potassium BUN 30.2 H BUN/Creatinine Ratio 28.49 H Glucose 183 H Plasma Lactic Acid Sedrick 2.2 H* 3.3 H* Calcium 8.4 L Total Bilirubin AST 12 L Total Protein 5.5 L Albumin 3.0 L Albumin/Globulin Ratio 1.20 L 07/11/22 11:58 WBC Hgb Hct MCV MCH MCHC RDW Immature Gran # Neutrophils # Lymphocytes # Monocytes # Eosinophils # PT INR APTT Potassium BUN BUN/Creatinine Ratio Glucose Plasma Lactic Acid Sed[place] 3.0 H* Calcium Total Bilirubin AST Total Protein Albumin Albumin/Globulin Ratio - Diagnostic Findings Chest x-ray: image reviewed Assessment and Plan Assessment: Dyspnea secondary to early left lower lobe pneumonia, currently on ceftriaxone and azithromycin Significant interstitial scarring and left formation in the left upper lobe, in addition to marked emphysematous changes. Recommend follow-up with surveillance CT chest scan in the 5-6 months and possibly a PET scan if any further changes COPD not oxygen dependent at baseline Supratherapeutic INR on admission at 8.4, currently improved and is down to 1.6 Ischemic cardiomyopathy, with a reported EF of 40%, status post AICD placement Former smoker, carries a [id number] smoking history Chronic A. 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 He would benefit from outpatient workup including full PFTs We will continue to follow and make further recommendations based on his clinical status I have personally seen and examined the patient, performed the documentation and the assessment and plan as written. Number of minutes spent on the visit: 20. I have personally seen and examined the patient and reviewed the documentation. I performed a joint evaluation with the nurse practitioner in this evaluation was done more than 30 minutes. I fully agree with the documentation above and the plan of care. Patient has a residual pneumonia. The patient be given broad-spectrum antibiotics. CAT scan of the chest was noted. Comorbidities were noted. We'll continue to follow. Continue same treatment for now.
[2022-07-11] MEDS ORDERED: DEXTROSE 50% SYRINGE 50 ML IVP PRN ×2 (15:35)
[2022-07-11 16:46] LABS: Glucose,Whole Blood 211 mg/dL (70-110)
[2022-07-11] MEDS: AZITHROMYCIN 500 MG in SODIUM CHLORIDE 0.9% 250 ML IVPB SCH (17:01)
[2022-07-11] MEDS: INSULIN ASPART (NovoLOG) 100 UNIT/ML VIAL SQ SCH ×2 (17:02→21:14)
[2022-07-11] MEDS ORDERED: ONDANSETRON 4 MG/2 ML VIAL IVP PRN (18:31)
[2022-07-11] MEDS: SYMBICORT 160-4.5 MCG INHALER INHALATION SCH (20:09)
[2022-07-11] MEDS ORDERED: WARFARIN 2 MG TAB PO SCH (21:00)
[2022-07-11 21:14] LABS: Glucose,Whole Blood 143 mg/dL (70-110)
[2022-07-12] MEDS: SODIUM CHLORIDE 0.9% 1,000 ML IV SCH (00:05)
--- NOTE | 2022-07-12 04:40 | PN ---
PROGRESS NOTE SUBJECTIVE: This is a 76-year-old gentleman, who was admitted with COPD exacerbation, is being closely monitored. The patient is on IV steroids. No chest pain. No palpitation. PHYSICAL EXAMINATION: VITAL SIGNS: Pulse is 105, blood pressure is 101/43, respirations 17. CHEST: A few scattered rhonchi and crackles. ABDOMEN: Soft, nontender. CARDIOVASCULAR: S1, S2 normal. LABS: INR 4.6. Other labs are noted. Lactic acid 3.3. ASSESSMENT: 1. Chronic obstructive pulmonary disease acute exacerbation with possible left lower lobe pneumonia with failure of outpatient treatment. 2. Hypertension. 3. Hyperlipidemia. 4. Multiple medical issues. RECOMMENDATIONS AND DISCUSSION: I recommend to continue current management and symptomatic treatment. Continue with IV fluids. Continue with the rest of medications. Repeat labs in the morning. Continue with steroids. Continue with intensive bronchodilators. Follow closely with Pulmonary. Prognosis guarded. Further recommendations to follow. MMODL / IJN: [id number] /
[2022-07-12] MEDS: methylPREDNISolone SOD SUCCI 125 MG/2 ML VIAL IV SCH (05:36)
[2022-07-12] MEDS: IPRATROPIUM-ALBUTEROL 3 ML NEB INHALATION SCH ×5 (08:44→20:12)
[2022-07-12] MEDS: SYMBICORT 160-4.5 MCG INHALER INHALATION SCH ×2 (08:44→20:12)
[2022-07-12 08:51] LABS: Basophils # (A) 0.01 X 10*3/uL (0.00-0.10); Basophils % (A) 0.1 %; Eosinophils # (A) 0 X 10*3/uL (0.04-0.35); Eosinophils % (A) 0 %; HCT 33.5 % (39.6-50.0); HGB 10.2 g/dL (13.0-17.0); Immature Grans, Automated 0.7 %; Lymphocytes % (A) 1.3 %; MCH 24.3 pg (27.0-32.0); MCHC 30.4 g/dL (32.0-37.0); MCV 79.8 fL (80.0-97.0); Mean Platelet Volume 10.3 fL (9.5-12.2); Monocytes # (A) 0.29 X 10*3/uL (0.20-1.00); Monocytes % (A) 1.9 %; NRBC Per 100 WBC 0 /100 WBCS (0.0-0.0); Neutrophils # (A) 14.76 X 10*3/uL (1.80-7.70); Platelet Count 320 X 10*3/uL (140-440); RDW 19.8 % (11.5-14.5); WBC 15.37 X 10*3/uL (4.50-10.00)
[2022-07-12] MEDS: METOPROLOL TARTRATE 25 MG TAB PO SCH ×2 (08:57→20:18)
[2022-07-12] MEDS: SACUBITRIL/VALSARTAN 24 MG-26 MG TABLET PO SCH ×2 (08:57→20:18)
[2022-07-12] MEDS: TAMSULOSIN 0.4 MG CAP.ER.24H PO SCH (08:57)
[2022-07-12] MEDS: PANTOPRAZOLE 40 MG TABLET PO SCH (08:57)
[2022-07-12] MEDS: ATORVASTATIN 40 MG TAB PO SCH (08:57)
[2022-07-12] MEDS: ASPIRIN 81 MG PO SCH (08:58)
[2022-07-12] MEDS: LORATADINE 10 MG TAB PO SCH (08:58)
[2022-07-12] MEDS: INSULIN ASPART (NovoLOG) 100 UNIT/ML VIAL SQ SCH ×4 (08:58→23:20)
[2022-07-12] MEDS: IPRATROPIUM 0.5 MG/2.5 ML NEBU INHALATION SCH ×4 (09:05→16:07)
[2022-07-12 09:11] LABS: African American GFR (CKD) 94.5 (60.0-200.0); Anion Gap 10.7 mmol/L (10.00-18.00); BUN/Creat Ratio 31.56 Ratio (12.00-20.00); Blood Urea Nitrogen 28.4 mg/dL (9.0-27.0); Calcium 8.5 mg/dL (8.7-10.3); Carbon Dioxide 24.3 mmol/L (20.0-27.5); Non-African American GFR(CKD) 81.5 (60.0-200.0); Potassium 4.6 mmol/L (3.5-5.5)
[2022-07-12 10:06] LABS: Prothrombin Time 51.2 sec (9.0-12.0)
[2022-07-12 10:19] LABS: INR 5.1 (<1.2)
[2022-07-12] MEDS ORDERED: PHYTONADIONE ORAL 5 MG/5 ML ORAL.SYRG PO STA (10:45)
[2022-07-12 11:15] LABS: Glucose,Whole Blood 152 mg/dL (70-110)
--- NOTE | 2022-07-12 12:45 | P.PN ---
Subjective Progress Note Date: 07/12/22 76-year-old patient with known history of advanced COPD and cardiomyopathy was coming in for an acute pneumonia treatment and COPD exacerbation. The patient is currently covered with broad-spectrum antibiotics and the patient is on a combination of Rocephin and Zithromax. Doing well. Less short of breath. No nausea. No vomiting. No chest pain. No pleurisy. No hemoptysis. His INR is patient with warfarin. Nevertheless, there are no signs of any bleeding. The patient has a white cell, 15.3 with a hemoglobin of 10.2 and a platelet count of 320. Sodium is at 142 with a potassium level of 4.6 and a chloride of 107. BUN is a 28 with a creatinine of 0.9. No other new complaints otherwise for now. Noted the patient is also receiving bronchodilators and the patient is also receiving Solu-Medrol 40 mg every 8 hours. The dose of Solu-Medrol was weaned off today as the patient was having increased alertness and some degree of insomnia. Objective - Vital Signs Vital signs: Vital Signs Temp 97.4 F L 07/12/22 07:39 Pulse 84 07/12/22 11:58 Resp 18 07/12/22 11:58 BP 132/81 07/12/22 07:39 Pulse Ox 95 07/12/22 09:00 FiO2 Intake & Output 07/11/22 07/12/22 07/12/22 18:59 06:59 18:59 Intake Total 1220 Balance 1220 Intake: Intake, IV Titration 900 Amount Sodium Chloride 0.9% 1, 900 000 ml @ 75 mls/hr IV . [id number] [facility] Rx#:[id number] Oral 320 Other: Voiding Method Toilet Toilet # Voids 3 2 - Exam GENERAL EXAM: Alert, pleasant 76-year-old male patient, on room air, comfortable in no apparent distress. HEAD: Normocephalic. EYES: Normal reaction of pupils, equal size. NOSE: Clear with pink turbinates. THROAT: No erythema or exudates. NECK: No masses, no JVD. CHEST: No chest wall deformity. LUNGS: Equal air entry with scattered rhonchi more so on the left. CVS: S1 and S2 normal with no audible murmur, regular rhythm. ABDOMEN: No hepatosplenomegaly, normal bowel sounds, no guarding or rigidity. SPINE: No scoliosis or deformity SKIN: No rashes CENTRAL NERVOUS SYSTEM: No focal deficits, tone is normal in all 4 extremities. EXTREMITIES: There is no peripheral edema. No clubbing, no cyanosis. Peripheral pulses are intact. - Labs CBC & Chem 7: 07/12/22 05:43 07/12/22 05:43 Labs: Abnormal Lab Results - Last 24 Hours (Table) 07/11/22 07/11/22 07/11/22 Range/Units 11:58 14:50 15:20 WBC (4.50-10.00) X 10*3/uL RBC (4.40-5.60) X 10*6/uL Hgb (13.0-17.0) g/dL Hct (39.6-50.0) % MCV (80.0-97.0) fL MCH (27.0-32.0) pg MCHC (32.0-37.0) g/dL RDW (11.5-14.5) % Immature Gran # (0.00-0.04) X 10*3/uL Neutrophils # (1.80-7.70) X 10*3/uL Lymphocytes # (0.90-5.00) X 10*3/uL Eosinophils # (0.04-0.35) X 10*3/uL PT (9.0-12.0) sec INR (<1.2) BUN (9.0-27.0) mg/dL BUN/Creatinine Ratio (12.00-20.00) Ratio Glucose (70-110) mg/dL POC Glucose (mg/dL) (70-110) mg/dL Hemoglobin A1c 6.2 H (0.0-6.0) % Plasma Lactic Acid Sedrick 3.0 H* 3.4 H* (0.7-2.0) mmol/L Calcium (8.7-10.3) mg/dL 07/11/22 07/11/22 07/11/22 Range/Units 16:45 17:35 21:13 WBC (4.50-10.00) X 10*3/uL RBC (4.40-5.60) X 10*6/uL Hgb (13.0-17.0) g/dL Hct (39.6-50.0) % MCV (80.0-97.0) fL MCH (27.0-32.0) pg MCHC (32.0-37.0) g/dL RDW (11.5-14.5) % Immature Gran # (0.00-0.04) X 10*3/uL Neutrophils # (1.80-7.70) X 10*3/uL Lymphocytes # (0.90-5.00) X 10*3/uL Eosinophils # (0.04-0.35) X 10*3/uL PT (9.0-12.0) sec INR (<1.2) BUN (9.0-27.0) mg/dL BUN/Creatinine Ratio (12.00-20.00) Ratio Glucose (70-110) mg/dL POC Glucose (mg/dL) 211 H 143 H (70-110) mg/dL Hemoglobin A1c (0.0-6.0) % Plasma Lactic Acid Sedrick 3.4 H* (0.7-2.0) mmol/L Calcium (8.7-10.3) mg/dL 07/12/22 07/12/22 07/12/22 Range/Units 05:43 05:43 09:37 WBC 15.37 H (4.50-10.00) X 10*3/uL RBC 4.20 L (4.40-5.60) X 10*6/uL Hgb 10.2 L (13.0-17.0) g/dL Hct 33.5 L (39.6-50.0) % MCV 79.8 L (80.0-97.0) fL MCH 24.3 L (27.0-32.0) pg MCHC 30.4 L (32.0-37.0) g/dL RDW 19.8 H (11.5-14.5) % Immature Gran # 0.11 H (0.00-0.04) X 10*3/uL Neutrophils # 14.76 H (1.80-7.70) X 10*3/uL Lymphocytes # 0.20 L (0.90-5.00) X 10*3/uL Eosinophils # 0 L (0.04-0.35) X 10*3/uL PT 51.2 H (9.0-12.0) sec INR 5.1 H* (<1.2) BUN 28.4 H (9.0-27.0) mg/dL BUN/Creatinine Ratio 31.56 H (12.00-20.00) Ratio Glucose 174 H (70-110) mg/dL POC Glucose (mg/dL) (70-110) mg/dL Hemoglobin A1c (0.0-6.0) % Plasma Lactic Acid Sedrick (0.7-2.0) mmol/L Calcium 8.5 L (8.7-10.3) mg/dL 07/12/22 Range/Units 11:12 WBC (4.50-10.00) X 10*3/uL RBC (4.40-5.60) X 10*6/uL Hgb (13.0-17.0) g/dL Hct (39.6-50.0) % MCV (80.0-97.0) fL MCH (27.0-32.0) pg MCHC (32.0-37.0) g/dL RDW (11.5-14.5) % Immature Gran # (0.00-0.04) X 10*3/uL Neutrophils # (1.80-7.70) X 10*3/uL Lymphocytes # (0.90-5.00) X 10*3/uL Eosinophils # (0.04-0.35) X 10*3/uL PT (9.0-12.0) sec INR (<1.2) BUN (9.0-27.0) mg/dL BUN/Creatinine Ratio (12.00-20.00) Ratio Glucose (70-110) mg/dL POC Glucose (mg/dL) 152 H (70-110) mg/dL Hemoglobin A1c (0.0-6.0) % Plasma Lactic Acid Sedrick (0.7-2.0) mmol/L Calcium (8.7-10.3) mg/dL Microbiology - Last 24 Hours (Table) 07/10/22 15:35 Blood Culture - Preliminary Blood No Growth after 24 hours 07/10/22 15:24 Blood Culture - Preliminary Blood No Growth after 24 hours Assessment and Plan Assessment: Acute COPD exacerbation with ongoing left lower lobe pneumonia, currently on a combination of Rocephin and Zithromax, clinically improving. Dyspnea secondary to early left lower lobe pneumonia, currently on ceftriaxone and azithromycin Significant interstitial scarring and left formation in the left upper lobe, in addition to marked emphysematous changes. Recommend follow-up with surveillance CT chest scan in the 5-6 months and possibly a PET scan if any further changes COPD not oxygen dependent at baseline Supratherapeutic INR at 5.1 Ischemic cardiomyopathy, with a reported EF of 40%, status post AICD placement Former smoker, carries a [id number] smoking history Chronic A. 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 The patient will need outpatient pulmonary follow-up He has been maintained on a combination of Symbicort and Spiriva on outpatient basis and both are adequate choices He would benefit from outpatient workup including full PFTs We will continue to follow and make further recommendations based on his clinical status
[2022-07-12 16:28] LABS: Glucose,Whole Blood 177 mg/dL (70-110)
[2022-07-12] MEDS: methylPREDNISolone SOD SUCCI 40 MG/ML 1 ML VIAL IV SCH ×2 (16:35→23:21)
[2022-07-12] MEDS: AZITHROMYCIN 500 MG in SODIUM CHLORIDE 0.9% 250 ML IVPB SCH (16:35)
[2022-07-12 20:34] LABS: Glucose,Whole Blood 88 mg/dL (70-110)
[2022-07-12] MEDS ORDERED: FUROSEMIDE 10 MG/ML 2 ML VIAL IV STA (23:15)
[2022-07-12] MEDS: IPRATROPIUM-ALBUTEROL 3 ML NEB INHALATION PRN (23:27)
[2022-07-13 02:50] VITALS: TEMP 98
[2022-07-13] MEDS: IPRATROPIUM-ALBUTEROL 3 ML NEB INHALATION PRN (04:23)
--- NOTE | 2022-07-13 05:38 | PN ---
PROGRESS NOTE SUBJECTIVE: This is a 76-year-old gentleman, who was admitted with COPD exacerbation, pneumonia, is being closely monitored. The patient is on IV antibiotics. No chest pain. No palpitations. No fever. PHYSICAL EXAMINATION: VITAL SIGNS: Pulse is 86, blood pressure 132/81, respirations 16. HEENT: Conjunctivae normal. NECK: No JVD. RESPIRATIONS: Breath sounds diminished at the bases. A few scattered rhonchi. ABDOMEN: Soft. NERVOUS SYSTEM: No focal deficits. LABS: WBC 15.7. The rest of the labs noted. INR 5.1. ASSESSMENT: 1. Chronic obstructive pulmonary disease acute exacerbation with possible left lower pneumonia with failure of outpatient treatment. 2. Hypertension. 3. Hyperlipidemia. 4. Multiple medical issues. RECOMMENDATIONS AND DISCUSSION: I recommend to continue current management and symptomatic treatment. Otherwise, at this time, I recommend vitamin K 2.5 mg and continue with antibiotics and rest of medications. Guarded prognosis. Further recommendations to follow. MMODL / IJN: [id number] /
--- NOTE | 2022-07-13 07:23 | XR ---
EXAMINATION TYPE: XR chest 1V portable DATE OF EXAM: 07/13/2022 HISTORY: Shortness of breath. COMPARISON: 07/10/2022 TECHNIQUE: Single view of the chest is submitted. FINDINGS: Demonstrated are scattered senescent parenchymal change. Lingular infiltrate has resolved. No infiltrates are seen with certainty at this time. The heart is stable. Hilar and mediastinal structures are within normal limits. Degenerative changes are seen of the dorsal spine. IMPRESSION: 1. Lingular infiltrate has resolved. No infiltrates are seen with certainty at this time.
[2022-07-13 07:44] LABS: Glucose,Whole Blood 149 mg/dL (70-110)
[2022-07-13 07:59] VITALS: BP 152/89; RESP 18
[2022-07-13] MEDS: INSULIN ASPART (NovoLOG) 100 UNIT/ML VIAL SQ SCH ×2 (08:00→13:00)
[2022-07-13] MEDS: ATORVASTATIN 40 MG TAB PO SCH (08:16)
[2022-07-13] MEDS: PANTOPRAZOLE 40 MG TABLET PO SCH (08:16)
[2022-07-13] MEDS: LORATADINE 10 MG TAB PO SCH (08:17)
[2022-07-13] MEDS: TAMSULOSIN 0.4 MG CAP.ER.24H PO SCH (08:17)
[2022-07-13] MEDS: ASPIRIN 81 MG PO SCH (08:18)
[2022-07-13] MEDS: METOPROLOL TARTRATE 25 MG TAB PO SCH (08:18)
[2022-07-13] MEDS: methylPREDNISolone SOD SUCCI 40 MG/ML 1 ML VIAL IV SCH (08:19)
[2022-07-13] MEDS: SACUBITRIL/VALSARTAN 24 MG-26 MG TABLET PO SCH (08:19)
[2022-07-13] MEDS: IPRATROPIUM-ALBUTEROL 3 ML NEB INHALATION SCH ×2 (08:47→11:54)
[2022-07-13] MEDS: SYMBICORT 160-4.5 MCG INHALER INHALATION SCH (08:47)
[2022-07-13 10:18] LABS: Anisocytosis Slight; Basophils % (A) 0 %; Eosinophils % (A) 0 %; HCT 36.2 % (39.0-53.0); Hypochromasia Marked; Lymphocytes # (A) 0.2 k/uL (1.0-4.8); Lymphocytes % (A) 2 %; MCHC 30.3 g/dL (31.0-37.0); MCV 82.2 fL (80.0-100.0); Mean Platelet Volume 7.1; Microcytosis Slight; Monocytes # (A) 0.3 k/uL (0-1.0); Monocytes % (A) 3 %; Neutrophils # (A) 11.1 k/uL (1.3-7.7); Neutrophils % (A) 95 %; Platelet Count 323 k/uL (150-450); RDW 18.4 % (11.5-15.5); WBC 11.7 k/uL (3.8-10.6)
[2022-07-13 10:29] LABS: African American GFR (CKD) 86 (>60 ml/min/1.73 sqM); Anion Gap 12 mmol/L; Blood Urea Nitrogen 36 mg/dL (9-20); Calcium 8.7 mg/dL (8.4-10.2); Carbon Dioxide 24 mmol/L (22-30); Chloride 105 mmol/L (98-107); Glucose 183 mg/dL (74-99); Non-African American GFR(CKD) 74 (>60 ml/min/1.73 sqM); Sodium 141 mmol/L (137-145)
[2022-07-13 10:41] LABS: INR 2.2 (<1.2); Prothrombin Time 21.9 sec (9.0-12.0)
[2022-07-13 11:19] LABS: Glucose,Whole Blood 213 mg/dL (70-110)
--- NOTE | 2022-07-13 11:56 | P.PN ---
Subjective Progress Note Date: 07/13/22 This is a very pleasant 76-year-old male patient with known history of COPD, coronary artery disease, hypertension, hyperlipidemia, coronary artery disease with previous stent placement and previous coronary grafting. He was recently hospitalized for upper chest wall pain felt to be musculoskeletal in nature. At that time x-ray revealed interstitial scarring at the left formation left upper lobe in addition to marked emphysematous changes. The plan was for follow-up surveillance computed tomography scan of the chest in 5-6 months and possibly a PET scan. He was discharged on 07/03/2022. However the patient developed worsening shortness of breath and presented here to the emergency room again y esterday. This x-ray is now revealing a left lower lobe airspace opacity concerning for developing pneumonia. Left upper and midlung opacity seen on previous CT scans less appreciated. He is seen today in consultation on the regular medical floor. He is currently sitting up in the bedside. Awake and alert in no acute distress. He does have a loose nonproductive cough. He is maintaining good O2 saturations in the 90s on room air. He's been afebrile. Slightly tachycardic. Blood pressure stable. White count 6.5. Hemoglobin 11.1. Platelets 301. INR 4.67. Sodium 142. Potassium 4.3. BUN 30. Creatinine 1.1. Lactic acid 3.0. Glucose 183. He's been initiated on DuoNeb inhalations, Symbicort, antibiotics in the form of ceftriaxone and azithromycin. He is on IV Solu-Medrol The patient is seen today on the 2021 in follow-up on the regular medical floor. He is doing much better. Awake and alert in no acute distress. Breathing much easier. Maintaining good O2 saturations in the 90s on room air. He's afebrile. Chest x-ray shows resolution of the lingular infiltrate. No other infiltrate seen today. White count 11.7. Hemoglobin 11.0. INR 2.2. Sodium 141. Potassium 4.0. Bicarb 24. BUN 36. Creatinine 0.9. Glucose 183. If he is continued on DuoNeb inhalations, Symbicort, prednisone taper. Antibiotics in the form of ceftriaxone and azithromycin. He did require Lasix IV secondary to fluid volume overload. Objective - Vital Signs Vital signs: Vital Signs Temp 98.0 F 07/13/22 07:57 Pulse 72 07/13/22 08:56 Resp 18 07/13/22 08:10 BP 152/89 07/13/22 07:57 Pulse Ox 95 07/13/22 07:57 FiO2 21 07/13/22 04:23 Intake & Output 07/12/22 07/13/22 07/13/22 18:59 06:59 18:59 Other: Voiding Method Toilet Toilet Toilet # Voids 3 4 - Exam GENERAL EXAM: Alert, pleasant 76-year-old male patient, on room air, comfortable in no apparent distress. HEAD: Normocephalic. EYES: Normal reaction of pupils, equal size. NOSE: Clear with pink turbinates. THROAT: No erythema or exudates. NECK: No masses, no JVD. CHEST: No chest wall deformity. LUNGS: Equal air entry with no crackles, wheeze or rhonchi. Diminished.. CVS: S1 and S2 normal with no audible murmur, regular rhythm. ABDOMEN: No hepatosplenomegaly, normal bowel sounds, no guarding or rigidity. SPINE: No scoliosis or deformity SKIN: No rashes CENTRAL NERVOUS SYSTEM: No focal deficits, tone is normal in all 4 extremities. EXTREMITIES: There is no peripheral edema. No clubbing, no cyanosis. Peripheral pulses are intact. - Labs CBC & Chem 7: 07/13/22 09:58 07/13/22 09:58 Labs: Abnormal Lab Results - Last 24 Hours (Table) 07/12/22 07/13/22 07/13/22 Range/Units 16:26 07:43 09:58 WBC 11.7 H (3.8-10.6) k/uL Hgb 11.0 L (13.0-17.5) gm/dL Hct 36.2 L (39.0-53.0) % MCHC 30.3 L (31.0-37.0) g/dL RDW 18.4 H (11.5-15.5) % Neutrophils # 11.1 H (1.3-7.7) k/uL Lymphocytes # 0.2 L (1.0-4.8) k/uL PT (9.0-12.0) sec INR (<1.2) BUN (9-20) mg/dL Glucose (74-99) mg/dL POC Glucose (mg/dL) 177 H 149 H (70-110) mg/dL 07/13/22 07/13/22 07/13/22 Range/Units 09:58 09:58 11:18 WBC (3.8-10.6) k/uL Hgb (13.0-17.5) gm/dL Hct (39.0-53.0) % MCHC (31.0-37.0) g/dL RDW (11.5-15.5) % Neutrophils # (1.3-7.7) k/uL Lymphocytes # (1.0-4.8) k/uL PT 21.9 H (9.0-12.0) sec INR 2.2 H (<1.2) BUN 36 H (9-20) mg/dL Glucose 183 H (74-99) mg/dL POC Glucose (mg/dL) 213 H (70-110) mg/dL Microbiology - Last 24 Hours (Table) 07/10/22 15:35 Blood Culture - Preliminary Blood No Growth after 48 hours 07/10/22 15:24 Blood Culture - Preliminary Blood No Growth after 48 hours Assessment and Plan Assessment: Dyspnea secondary to early left lower lobe pneumonia, currently on ceftriaxone and azithromycin. Today's chest x-ray reveals near complete resolution. Significant interstitial scarring and left formation in the left upper lobe, in addition to marked emphysematous changes. Recommend follow-up with surveillance CT chest scan in the 5-6 months and possibly a PET scan if any further changes COPD not oxygen dependent at baseline Supratherapeutic INR on admission at 8.4, currently improved and is down to 1.6 Ischemic cardiomyopathy, with a reported EF of 40%, status post AICD placement Former smoker, carries a [id number] smoking history Chronic A. 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 Number of minutes spent on the visit: 10. I have personally seen and examined the patient and reviewed the documentation. I performed a joint evaluation with the nurse practitioner in this evaluation was done more than 20 minutes. I fully agree with the documentation above and the plan of care. Chest x-ray findings are stable and improving and the patient is currently on a course of antibiotics. The patient will need outpatient antibiotics probably combination of Zithromax and Ceftin with the next 5-7 days in addition to prednisone burst taper. Symbicort and Spiriva to be resumed on outpatient basis and the patient will be seen in our office. He was given a dose of Lasix which improved his fluid balance. I reviewed with her currently at [facility].
[2022-07-13 12:06] VITALS: PULSE 67
[2022-07-14] MEDS ORDERED: predniSONE 20 MG TAB PO SCH (09:00)
== END 2022-07-13 14:21 | disposition home or self-care (01) | DRG 194 ==
LOC: EC 12:57 → 4SSUR 14:48
PROVIDERS: ADMIT Hospitalist; ATTEND Hospitalist
DX: J18.9 Pneumonia, unspecified organism (principal); I48.20 Chronic atrial fibrillation, unspecified; J44.0 Chronic obstructive pulmonary disease with (acute) lower respiratory infection; J44.1 Chronic obstructive pulmonary disease with (acute) exacerbation; K21.9 Gastro-esophageal reflux disease without esophagitis; R79.1 Abnormal coagulation profile; E78.5 Hyperlipidemia, unspecified; E87.70 Fluid overload, unspecified; I10 Essential (primary) hypertension; G47.00 Insomnia, unspecified; I25.10 Atherosclerotic heart disease of native coronary artery without angina pectoris; I25.2 Old myocardial infarction; I25.5 Ischemic cardiomyopathy; Z77.090 Contact with and (suspected) exposure to asbestos; Z79.01 Long term (current) use of anticoagulants; Z79.51 Long term (current) use of inhaled steroids; Z79.82 Long term (current) use of aspirin; Z79.899 Other long term (current) drug therapy; Z86.79 Personal history of other diseases of the circulatory system; Z87.891 Personal history of nicotine dependence; Z95.1 Presence of aortocoronary bypass graft; Z95.5 Presence of coronary angioplasty implant and graft; Z95.810 Presence of automatic (implantable) cardiac defibrillator; Z87.19 Personal history of other diseases of the digestive system; Z88.1 Allergy status to other antibiotic agents; Z88.5 Allergy status to narcotic agent; Z88.0 Allergy status to penicillin
CPT/HCPCS: 36415; 71045; 80048; 80053; 83036; 83605; 83880; 84145; 84484; 85025; 85610; 85730; 87040; 87636; 93005; 94640; 94760; 96365; 96375; 99285

== ENCOUNTER 2022-10-07 12:31 | Emergency (ER) | payer MEDICARE, OTHER ==
[2022-10-07 13:06] VITALS: TEMP 98.5
[2022-10-07] MEDS ORDERED: SODIUM CHLORIDE 0.9% 1,000 ML IV STA ×2 (14:54)
[2022-10-07] MEDS ORDERED: fentaNYL (PF) 50 MCG/ML 2 ML AMP IVP STA ×2 (14:55→16:54)
--- NOTE | 2022-10-07 14:58 | ED ---
Abdominal Pain HPI - General Chief Complaint: Abdominal Pain Stated Complaint: Gallbladder full of stones Time Seen by Provider: 10/07/22 14:45 Source: patient, RN notes reviewed, old records reviewed Mode of arrival: ambulatory Limitations: no limitations - History of Present Illness Initial Comments: 76-year-old male presents to the emergency room with 1 month of abdominal pain. Did see his primary care doctor Monday who sent him for an ultrasound which he had today. Patient states that his doctor also found an INR greater than 6 and stopped his coumadin. States has nausea, no vomiting or diarrhea. Denies any fevers. States that he did become jaundiced 2 days ago. Patient denies alcohol use daily. Does have history of A. fib, coronary artery bypass graft with AICD, coronary artery disease, COPD, GERD, hypertension and colitis. MD Complaint: abdominal pain -: month(s) (1) Location: diffuse Severity scale (1-10): 8 Quality: fullness Consistency: constant Worsens With: other (palpation) Associated Symptoms: nausea, other (jaundice) Treatments Prior to Arrival: other (ultrasound) - Related Data Home Medications Medication Instructions Recorded Confirmed Acetaminophen [Tylenol] 325 mg PO Q6H PRN 09/19/17 07/10/22 Albuterol Inhaler [Ventolin Hfa 2 puff INHALATION RT-Q4H PRN 09/19/17 07/10/22 Inhaler] Aspirin [Adult Low Dose Aspirin EC] 81 mg PO DAILY 09/19/17 07/10/22 Budesonide-Formot 160-4.5 Mcg 2 puff INHALATION RT-BID 09/19/17 07/10/22 [Symbicort 160-4.5 Mcg Inhaler] Furosemide [Lasix] 20 mg PO BID 09/19/17 07/10/22 Loratadine 10 mg PO DAILY 09/19/17 07/10/22 Omeprazole Magnesium [PriLOSEC OTC] 20 mg PO DAILY 09/19/17 07/10/22 Potassium Chloride [K-Tab ER] 10 meq PO DAILY 09/19/17 07/10/22 Tamsulosin HCl [Flomax] 0.4 mg PO DAILY 09/19/17 07/10/22 Acetaminophen/Diphenhydramine 2 tab PO HS PRN 07/01/22 07/10/22 [Tylenol PM 500-25mg] Atorvastatin Calcium [Lipitor] 40 mg PO DAILY 07/01/22 07/10/22 Nitroglycerin Sl Tabs [Nitrostat] 0.4 mg SL Q5M PRN 07/01/22 07/10/22 Sacubitril/Valsartan [Entresto 24 1 tab PO BID 07/01/22 07/10/22 mg-26 mg Tablet] Tiotropium 2.5 Mcg/Puff [Spiriva 2 puff INHALATION RT-DAILY 07/01/22 07/10/22 Respimat 2.5 Mcg] Warfarin Sodium 2 mg PO SUMOTUTHFRSA@2100 07/01/22 07/10/22 Previous Rx's Medication Instructions Recorded Metoprolol Tartrate [Lopressor] 25 mg PO BID 30 Days #60 tab 07/03/22 Azithromycin [Zithromax] 500 mg PO DAILY 5 Days #5 tab 07/13/22 Multivitamins, Thera [Multivitamin] 1 tab PO DAILY #30 tablet 07/13/22 cefUROXime axetiL [Ceftin] 500 mg PO BID 5 Days #10 tab 07/13/22 predniSONE 10 mg PO DIRECTED #30 tab 07/13/22 Allergies Allergy/AdvReac Type Severity Reaction Status Date / Time Penicillins Allergy Rash/Hives Verified 10/07/22 13:06 tiotropium Allergy Cough with Verified 10/07/22 13:06 [From Spiriva with handihaler HandiHaler] only vancomycin Allergy Rash/Hives Verified 10/07/22 13:06 morphine AdvReac Confusion Verified 10/07/22 13:06 Review of Systems ROS Statement: Those systems with pertinent positive or pertinent negative responses have been documented in the HPI. ROS Other: All systems not noted in ROS Statement are negative. Past Medical History Past Medical History: Coronary Artery Disease (CAD), GERD/Reflux, Hyperlipidemi a, Hypertension Additional Past Medical History / Comment(s): Colitis Last Myocardial Infarction Date:: 1998 History of Any Multi-Drug Resistant Organisms: None Reported Past Surgical History: Coronary Bypass/CABG, Heart Catheterization With Stent Additional Past Surgical History / Comment(s): fem pop bypass Past Anesthesia/Blood Transfusion Reactions: No Reported Reaction Date of Last Stent Placement:: 2016 Past Psychological History: No Psychological Hx Reported Smoking Status: Former smoker Past Alcohol Use History: None Reported Past Drug Use History: None Reported General Exam Limitations: no limitations General appearance: alert, in no apparent distress Head exam: Present: atraumatic, normocephalic Eye exam: Present: scleral icterus. Absent: periorbital swelling, periorbital tenderness ENT exam: Present: mucous membranes moist Neck exam: Present: full ROM. Absent: tenderness, meningismus, lymphadenopathy Respiratory exam: Present: normal lung sounds bilaterally. Absent: respiratory distress, accessory muscle use Cardiovascular Exam: Present: regular rate GI/Abdominal exam: Present: soft, distended, tenderness, normal bowel sounds. Absent: guarding, rigid, mass Extremities exam: Present: normal capillary refill. Absent: tenderness, pedal edema, calf tenderness Back exam: Absent: tenderness, CVA tenderness (R), CVA tenderness (L), paraspinal tenderness, vertebral tenderness, rash noted Neurological exam: Present: alert, oriented X3 Psychiatric exam: Present: normal affect, normal mood Skin exam: Present: warm, dry, other (jaundiced). Absent: cyanosis, diaphoretic, petechiae, pallor Course Vital Signs 10/07/22 10/07/22 10/07/22 13:04 14:44 15:20 Temperature 98.5 F Pulse Rate 69 80 93 Respiratory 20 16 16 Rate Blood Pressure 119/74 116/87 98/81 O2 Sat by Pulse 96 98 98 Oximetry Medical Decision Making - Medical Decision Making Patient presents with 1 month of abdominal pain. Seen his primary care doctor on Monday who recommended ultrasound. Ultrasound performed today revealing gallbladder wall measuring 0.7 cm, common bile duct at 1.7 cm. There are dilated biliary ducts without evidence of focal mass. Multiple stones within the thickened wall gallbladder. Dilated biliary system with cholelithiasis. Aden sign suggests cholecystitis secondary to common bile duct obstruction in the setting of choledocholithiasis recommended an MRCP. Labs show no evidence of leukocytosis. INR 3.9, total bili 13.6, AST 315, ALT 152, alk phos 1151. Patient's presentation consistent with choledocholithiasis; diffuse abdominal pain with nausea and jaundiced. Patient denies any fevers, afebrile in the emergency room. Became jaundiced 2 days ago. Diffuse abdominal pain worsening over past month. He is alert and oriented 4, vital signs are stable blood pressure 116/87. We do not have GI services, therefore will attempt to arrange transfer to another facility. Patient notified of plan of care. I did speak with Dr. Tomas at [facility] who was agreeable to accepting care for patient. Recommend patient be placed on Zosyn and kept nothing by mouth. Spoke with Dr Lockwood at [facility] . Who is agreeable to transfer. Case discussed with Dr. Barry - Lab Data Result diagrams: 10/07/22 15:07 10/07/22 15:07 Lab Results 10/07/22 10/07/22 10/07/22 Range/Units 15:07 15:07 15:07 WBC 6.7 (3.8-10.6) k/uL RBC 4.91 (4.30-5.90) m/uL Hgb 12.5 L (13.0-17.5) gm/dL Hct 39.5 (39.0-53.0) % MCV 80.4 (80.0-100.0) fL MCH 25.5 (25.0-35.0) pg MCHC 31.7 (31.0-37.0) g/dL RDW 19.5 H (11.5-15.5) % Plt Count 231 (150-450) k/uL MPV 8.3 Neutrophils % 77 % Lymphocytes % 10 % Monocytes % 7 % Eosinophils % 2 % Basophils % 1 % Neutrophils # 5.2 (1.3-7.7) k/uL Lymphocytes # 0.7 L (1.0-4.8) k/uL Monocytes # 0.5 (0-1.0) k/uL Eosinophils # 0.1 (0-0.7) k/uL Basophils # 0.1 (0-0.2) k/uL Hypochromasia Moderate Anisocytosis Slight Microcytosis Slight PT 38.5 H (9.0-12.0) sec INR 3.9 H (<1.2) APTT 38.7 H (22.0-30.0) sec Sodium 135 L (137-145) mmol/L Potassium 3.6 (3.5-5.1) mmol/L Chloride 104 (98-107) mmol/L Carbon Dioxide 23 (22-30) mmol/L Anion Gap 8 mmol/L BUN 18 (9-20) mg/dL Creatinine 0.91 (0.66-1.25) mg/dL Est GFR (CKD-EPI)AfAm >90 (>60 ml/min/1.73 sqM) Est GFR (CKD-EPI)NonAf 81 (>60 ml/min/1.73 sqM) Glucose 100 H (74-99) mg/dL Plasma Lactic Acid Sedrick (0.7-2.0) mmol/L Calcium 9.0 (8.4-10.2) mg/dL Total Bilirubin 13.6 H (0.2-1.3) mg/dL AST 315 H (17-59) U/L ALT 152 H (4-49) U/L Alkaline Phosphatase 1151 H (38-126) U/L Total Protein 7.3 (6.3-8.2) g/dL Albumin 3.7 (3.5-5.0) g/dL Amylase 70 (30-110) U/L Lipase 150 (23-300) U/L // Range/Units 15:13 WBC (3.8-10.6) k/uL RBC (4.30-5.90) m/uL Hgb (13.0-17.5) gm/dL Hct (39.0-53.0) % MCV (80.0-100.0) fL MCH (25.0-35.0) pg MCHC (31.0-37.0) g/dL RDW (11.5-15.5) % Plt Count (150-450) k/uL MPV Neutrophils % % Lymphocytes % % Monocytes % % Eosinophils % % Basophils % % Neutrophils # (1.3-7.7) k/uL Lymphocytes # (1.0-4.8) k/uL Monocytes # (0-1.0) k/uL Eosinophils # (0-0.7) k/uL Basophils # (0-0.2) k/uL Hypochromasia Anisocytosis Microcytosis PT (9.0-12.0) sec INR (<1.2) APTT (22.0-30.0) sec Sodium (137-145) mmol/L Potassium (3.5-5.1) mmol/L Chloride (98-107) mmol/L Carbon Dioxide (22-30) mmol/L Anion Gap mmol/L BUN (9-20) mg/dL Creatinine (0.66-1.25) mg/dL Est GFR (CKD-EPI)AfAm (>60 ml/min/1.73 sqM) Est GFR (CKD-EPI)NonAf (>60 ml/min/1.73 sqM) Glucose (74-99) mg/dL Plasma Lactic Acid Sedrick 1.1 (0.7-2.0) mmol/L Calcium (8.4-10.2) mg/dL Total Bilirubin (0.2-1.3) mg/dL AST (17-59) U/L ALT (4-49) U/L Alkaline Phosphatase (38-126) U/L Total Protein (6.3-8.2) g/dL Albumin (3.5-5.0) g/dL Amylase (30-110) U/L Lipase (23-300) U/L Disposition Clinical Impression: Choledocholithiasis Disposition: ADMITTED IP TO THIS HOSP Referrals: Lola Schroeder DO [Primary Care Provider] - 1-2 days Decision Date: 10/07/22 Decision Time: 16:42 - Out of Hospital Transfer - Req. Specs Out of Hospital Transfer - Requested Specifics: Other Emergency Center ([facility])
[2022-10-07 15:31] LABS: INR 3.9 (<1.2)
[2022-10-07 15:32] LABS: Partial Thromboplastin Time 38.7 sec (22.0-30.0); Prothrombin Time 38.5 sec (9.0-12.0)
[2022-10-07 15:40] LABS: Anisocytosis Slight; Basophils # (A) 0.1 k/uL (0-0.2); Basophils % (A) 1 %; Eosinophils # (A) 0.1 k/uL (0-0.7); Eosinophils % (A) 2 %; HCT 39.5 % (39.0-53.0); HGB 12.5 gm/dL (13.0-17.5); Hypochromasia Moderate; Lymphocytes # (A) 0.7 k/uL (1.0-4.8); Lymphocytes % (A) 10 %; MCH 25.5 pg (25.0-35.0); MCHC 31.7 g/dL (31.0-37.0); MCV 80.4 fL (80.0-100.0); Mean Platelet Volume 8.3; Microcytosis Slight; Monocytes # (A) 0.5 k/uL (0-1.0); Monocytes % (A) 7 %; Neutrophils # (A) 5.2 k/uL (1.3-7.7); Neutrophils % (A) 77 %; Platelet Count 231 k/uL (150-450); RBC 4.91 m/uL (4.30-5.90); RDW 19.5 % (11.5-15.5); WBC 6.7 k/uL (3.8-10.6)
[2022-10-07 15:56] LABS: Potassium 3.6 mmol/L (3.5-5.1)
[2022-10-07] MEDS ORDERED: SODIUM CHLORIDE 0.9% 500 ML 500 ML IV ONE (15:56)
[2022-10-07 15:57] LABS: ALT 152 U/L (4-49); AST 315 U/L (17-59); African American GFR (CKD) >90 (>60 ml/min/1.73 sqM); Albumin 3.7 g/dL (3.5-5.0); Alkaline Phosphatase 1151 U/L (38-126); Amylase 70 U/L (30-110); Anion Gap 8 mmol/L; Blood Urea Nitrogen 18 mg/dL (9-20); Carbon Dioxide 23 mmol/L (22-30); Chloride 104 mmol/L (98-107); Glucose 100 mg/dL (74-99); Lipase 150 U/L (23-300); Non-African American GFR(CKD) 81 (>60 ml/min/1.73 sqM); Sodium 135 mmol/L (137-145); Total Bilirubin 13.6 mg/dL (0.2-1.3); Total Protein 7.3 g/dL (6.3-8.2)
[2022-10-07] MEDS ORDERED: PIPERACILLIN-TAZOBACTAM 3.375 GM in SODIUM CHLORIDE 0.9% 100 ML IVPB STA (16:37)
[2022-10-07 18:47] VITALS: BP 135/100; PULSE 79; RESP 18
== END 2022-10-07 18:46 | disposition other institution (70) ==
LOC: EC 12:31
DX: K80.70 Calculus of gallbladder and bile duct without cholecystitis without obstruction (principal); I25.10 Atherosclerotic heart disease of native coronary artery without angina pectoris; K21.9 Gastro-esophageal reflux disease without esophagitis; E78.5 Hyperlipidemia, unspecified; I10 Essential (primary) hypertension; Z88.0 Allergy status to penicillin; Z88.1 Allergy status to other antibiotic agents; Z87.891 Personal history of nicotine dependence; Z95.1 Presence of aortocoronary bypass graft; Z88.5 Allergy status to narcotic agent; Z88.8 Allergy status to other drugs, medicaments and biological substances; Z79.01 Long term (current) use of anticoagulants; Z79.899 Other long term (current) drug therapy; Z79.82 Long term (current) use of aspirin
CPT/HCPCS: 36415; 80053; 82150; 83605; 83690; 85025; 85610; 85730; 99285; 96365; 96375; 96376; 96361; J2543; J3010

== ENCOUNTER → 2022-10-07 | Outpatient (CLI) | payer MEDICARE ==
--- NOTE | 2022-10-07 12:52 | US ---
EXAMINATION TYPE: US abdomen complete DATE OF EXAM: 10/07/2022 COMPARISON: CT Angio-Seal 07/01/2022 CLINICAL HISTORY: R10.13 EPIGASTRIC PAIN. TECHNIQUE: Multiple sonographic images of the abdomen are obtained.Pain jaundice FINDINGS: EXAM MEASUREMENTS: Liver Length: 18.6 cm Gallbladder Wall: .7 cm CBD: 1.7 cm Spleen: 12.2 cm Right Kidney: 8.0 x 3.7 x 3.5 cm Left Kidney: 10.8 x 5.1 x 4.6 cm Pancreas: Obscured by bowel gas Liver: Dilated biliary ducts without evidence of focal mass. Gallbladder: Multiple stones thickened wall. Evidence for sonographic Aden's sign: Yes CBD: Dilated Spleen: wnl Right Kidney: No hydronephrosis or masses seen Left Kidney: Hypoechoic area lower pole 3.9 x 4.0 x 4.3 cm upper pole 1.7 x 2.2 cm. Upper IVC: wnl Abd Aorta: Stent distally 5.9 x 5.6 cm. IMPRESSION: 1. Dilated biliary system with cholelithiasis in the clinical presentation of jaundice with a positi ve sonographic Aden sign suggests cholecystitis likely secondary to common duct obstruction in the setting of choledocholithiasis. Further evaluation of the abdomen is recommended with MRCP.
== END | disposition home or self-care (01) ==
LOC: RADUSWWP 10:41
PROVIDERS: ATTEND Family Medicine
DX: K80.20 Calculus of gallbladder without cholecystitis without obstruction (principal); R10.13 Epigastric pain
CPT/HCPCS: 76700